=== PATIENT | male | born 1955 | race Caucasian/White ===

== ENCOUNTER → 2017-12-19 16:42 | Outpatient (CLI) | payer MEDICAID, SELFPAY ==
--- NOTE | 2017-12-19 16:48 | CT_ITS ---
STUDY: LOW DOSE CT LUNG CANCER SCREENING REASON FOR EXAM: Male, 62 years old. COPD, 40 year smoker, chest pain for a few months. Approximately 2 packs per day. Lung cancer screening. RADIATION DOSAGE (If Supplied By Facility): CTDIvol = ( 3.02 ) mGy, DLP = ( 114.38 ) mGycm TECHNIQUE: No contrast was administered. Low dose technique was utilized. 1.25 mm axial source images with a slice interval of 1.25-mm were reconstructed in lung windows. Nodule measured using lung windows on PACS and/or independent workstation with automated measurement of minimum and maximum diameter. Nodule measurement reported as average diameter rounded to the nearest whole number. Growth is defined as an increase ins size of greater than 1.5 mm. COMPARISON: None. FINDINGS: Total lung nodules (excluding granulomas): On the left, nodule along the major fissure series 2 image 138, solid features, smoothly marginated, measuring 7.5 x 3 mm. Right upper lobe apical segment series 2 image 43 solid pulmonary nodule measuring approximately 3 mm. Right middle lobe subpleural pulmonary nodule along the anterior pleural margin measures approximately 3 2 mm. Solid, smooth margins. Emphysema: Generalized pulmonary hyperlucency and hyperinflation consistent with COPD with mild features of centrilobular emphysema predominating at the apices. Endobronchial lesion: None. Aorta: Not aneurysmal ectasia of the ascending aorta and proximal arch measuring up to 3.8 cm. Mild arch atherosclerosis. Three-vessel cervical arch branching. Coronary arteries: The right and left coronary arteries emerge from the appropriate coronary sinus, right coronary dominance to the PDA. Ramus intermedius trifurcation of the left main coronary artery, normal variant. Calcified plaque is visible in the proximal LAD, proximal ramus intermedius branch, proximal circumflex, mid circumflex, with patchy calcification the proximal, mid and distal RCA. Heart: Normal cardiac size with no pericardial effusion. Pulmonary artery: No significant dilatation. Mediastinal nodes: No mediastinal or hilar mass or lymphadenopathy. Normal appearance of the esophagus. Other chest and abdominal findings: There are no other significant thoracic or upper abdominal findings. CT/Low Dose CT Lung Screening IMPRESSION: 3 pulmonary nodules are identified. The largest on the left lies along the major fissure, measuring 7.5 x 3 mm. Based on the ACR lung RADS classification system, solid nodules, at least one of which is greater than or equal to 6 mm but less than 8 mm, CATEGORY 3, probably benign. Follow-up CT is recommended in 6 months. Based on Fleischner Society Criteria 2017, multiple solid pulmonary nodules at least one of which measures between 6 and 8 mm, in a high-risk patient, follow-up CT in 3-6 months. If stable, follow-up CT 18-24 months from this current study. IMPORTANT NOTES FOR USE: ACR Lung-RADS Version 1.0 Assessment Categories Release Date: October 26, 2013 Category: Coded 0-4 bases on nodule(s) with highest degree of suspicion. Negative screen is defined as categories 1 and 2; a positive screen is defined as categories 3 and 4. Category 3 and 4A nodules that are unchanged on interval CT should be coded as category 2, and individuals returned to screening in 12 months. Category 4X: Category 3 or 4 nodules with additional imaging findings that increase the suspicion of lung cancer, such as spiculation, GGN that doubles in size in 1 year, enlarged lymph notes, etc. Category Modifiers: S (significant finding unrelated to lung cancer) and C (prior history of treated lung cancer) may be added to the 0-4 Lung-RADS Electronically Signed: Matthew Kemp, at 8:56 EDT Tel , Service support ,
== END ==
DX: Z12.2 Encounter for screening for malignant neoplasm of respiratory organs (principal); Z87.891 Personal history of nicotine dependence; J44.9 Chronic obstructive pulmonary disease, unspecified
CPT/HCPCS: G0297

== ENCOUNTER 2018-04-06 14:33 | Emergency (ER) | payer MEDICAID, SELFPAY ==
[2018-04-06 14:33] VITALS: BP 115/84; PULSE 100; RESP 14; TEMP 37.8; O2SAT 95; BMI 23.2
--- NOTE | 2018-04-06 14:47 | RAD_ITS ---
STUDY: X-RAY CHEST REASON FOR EXAM: Male, 62 years old. Cough and fever TECHNIQUE: Frontal and lateral views of the chest were obtained. COMPARISON: Chest CT dated December 19, 2017 FINDINGS: The lungs are hyperinflated. There are no focal airspace opacities. There is no demonstrated pleural abnormality. The cardiac silhouette is normal in size. The mediastinum and hilar regions are unremarkable. There is prominence of the pulmonary hilar arteries without peripheral pulmonary vascular congestion, suggesting pulmonary hypertension. Normal visualized aortic arch and descending thoracic aorta. There are diffuse degenerative changes of the visualized spine. There are degenerative changes in both shoulders. There is no demonstrated abnormality of the visualized upper abdomen. RAD/Chest PA and Lateral IMPRESSION: There is no evidence of focal consolidation or pleural effusion. There is stable COPD. Electronically Signed: Gladys Mcleod MD at 16:21 EDT Tel Direct: [phone], Service support ,
[2018-04-06] MEDS: Acetaminophen 500 MG Tablet 1000 MG PO (14:52)
--- NOTE | 2018-04-06 15:10 | ED.VISSUMM ---
- ER Visit Summary Date of Service: 04/06/18 Chief Complaint: Cough and runny nose History of Present Illness: The patient is a 62 M history of COPD and reflux. 3-day history of clear runny nose and cough. No chest pain. Subjective fever. No vomiting or diarrhea. Nonproductive cough. Physical Examination: Middle-aged male. Vital signs are stable. Pulse ox 95% room air no hypoxia. Low-grade fever 100. Does not look septic or toxic. No distress. H EENT exam moist wheeze membranes. Posterior pharynx normal. TMs unremarkable. Nose clear rhinorrhea but no purulent discharge. No frontal maxillary sinus tenderness. Neck nontender no lymphadenopathy. No meningismus. Lungs dry hacking cough. No rales, rhonchi or significant wheezing. Heart regular rhythm rate about 100 no murmur. Abdomen soft nontender normal bowel sounds no peritoneal signs. Patient is moving all 4 extremities. The neurovascular intact. Calves are nontender without edema or cords. Neurologically the patient is awake alert with no focal motor deficits. Test Results: Chest x-ray was obtained shows chronic changes consistent with COPD. No pneumonia. Emergency Department Course and Treatment: Treated as a viral URI. Continue on his inhaler. Follow-up with his primary care physician if not improving. Treatment Plan: [] Disposition: Discharge Impression: Acute viral bronchitis History of COPD This note was generated with [employer] dictation software. It may contain incorrect words, spelling, and punctuation that were not noted in review of the chart prior to signing ED Disposition - Plan for ED Patient: Chief Complaint: Cold Sx Referrals: Tiana Torres [Primary Care Provider] -
--- NOTE | 2018-04-06 15:13 | ED.DEP ---
ED Disposition - Plan for ED Patient: Disposition: Home or Assisted Living Chief Complaint: Cold Sx Instructions: ED Upper Resp Infec No Abx Tx Prescriptions: Prednisone [Deltasone] 40 mg PO DAILY 7 Days tab [facility]errals[facility]Tiana Gale [Primary Care Provider] - 1 Week if not improving Additional Instructions: Inhaler as needed. Follow-up with start some clinic if not improving. Prednisone daily for wheezing.
[2018-04-06 15:32] VITALS: RESP 16
== END 2018-04-06 15:32 | disposition home or self-care (01) ==
LOC: ED 15:25
PROVIDERS: Emergency Provider Emergency Medicine
DX: J20.8 Acute bronchitis due to other specified organisms (principal); J44.9 Chronic obstructive pulmonary disease, unspecified; K21.9 Gastro-esophageal reflux disease without esophagitis; Z72.0 Tobacco use
CPT/HCPCS: 71046; 99283

== ENCOUNTER 2019-10-19 22:50 | Emergency (ER) | payer MEDICAID, SELFPAY ==
[2019-10-19 22:51] VITALS: BP 163/96; PULSE 89; RESP 16; TEMP 36.2; O2SAT 97; BMI 25.6
--- NOTE | 2019-10-19 23:06 | ED.RN ---
THIS RN WAS STANDING IN ROOM WITH PAUL SPEAKING TO PATIENT. PT STATES FUCK YOU BITCHES I'M GETTING THE FUCK OUT OF HERE TO GO FIND MY DOG. THIS RN ASKED IF PATIENT HAD AN APPROPRIATE RIDE HOME AND TOLD PATIENT THAT THE DOCTOR WOULD BE IN SHORTLY TO SEE AND EVALUATE HIM. PT STATES I DIDN'T WANT O COME TO THIS FUCKING DUMP BUT THIS BITCH MADE ME. FUCK YOU BITCHES. I'M GETTING THE FUCK OUT OF HERE PT EXITED THE ROOM AND WALKED OUT OF THE DEPARTMENT. PATIENT WAS SPOTTED LEAVING THE HOSPITAL PROPERTY BY HOSPITAL SECURITY. PT WAS NEVER EVALUATED BY THE DOCTOR.
== END 2019-10-19 23:05 | disposition left against medical advice (07) ==
LOC: ED 23:11
PROVIDERS: Emergency Provider Emergency Medicine
DX: R69 Illness, unspecified (principal); Z53.21 Procedure and treatment not carried out due to patient leaving prior to being seen by health care provider
CPT/HCPCS: 99283